=== PATIENT | male | born 1950 | race Caucasian/White ===

== ENCOUNTER 2016-04-06 12:56 | Inpatient (IN) | payer OTHER ==
[~2016-04-06] VITALS: Ht 170.2 cm; Wt 77.1 kg
[2016-04-06 14:18] LABS: Basophils # (auto) 0 uL; DEFINITIVE VIEW TRANSMISSION; Eosinophils # (auto) 0 uL; Hematocrit 18.4 % (41.0-53.0); Lymphocytes % (auto) 11.8 % (10.0-50.0); Mean Corpuscular Hemoglobin 27.4 pg (28.0-32.0); Mean Corpuscular Hgb Conc. 32.1 g/dL (32.0-36.0); Mean Corpuscular Volume 85.3 fL (80.0-100.0); Monocytes # (auto) 1.3 uL; Monocytes % (auto) 7.6 % (0.0-12.0); Neutrophils # (auto) 13.9 uL; Neutrophils % (auto) 80.6 % (37.0-80.0); Platelet Count (auto) 326 10^3/uL (140-450); White Blood Cell 17.2 10^3/uL (4.4-10.8)
[2016-04-06 14:31] LABS: Hemoglobin 5.9 g/dL (13.5-17.5); Red Cell Distribution Width 22.5 % (11.6-16.0)
[2016-04-06 14:41] LABS: Partial Thromboplastin Time 22.3 sec (22.64-33.71); Prothrombin Time 12.3 sec (9.37-12.3)
[2016-04-06 14:44] LABS: Albumin 2.2 g/dL (3.4-5.0); BUN/Creatinine Ratio 51.7; Bilirubin, Total 0.5 mg/dL (0.2-1.0); Calcium 7.7 mg/dL (8.5-10.1); Magnesium 2.3 mg/dL (1.6-2.6); Potassium 5.2 mmol/L (3.5-5.1); Total Protein 4.8 g/dL (6.4-8.2)
[2016-04-06 14:51] LABS: INR 1.19 (0.9-1.15)
[2016-04-06] MEDS ORDERED: PANTOPRAZOLE SODIUM 40 MG/10 ML VIAL IV ONE (15:15)
[2016-04-06 15:43] LABS: Platelet Estimate Adequate
[2016-04-06 15:45] LABS: Anisocytosis Slight; Ovalocytes FEW
[2016-04-06 17:54] VITALS: BP 146/98
[2016-04-06 20:30] VITALS: BP 119/61
[2016-04-06 21:00] VITALS: BP 115/53
[2016-04-06] MEDS ORDERED: InsuLIN REG 1unit/0.01ml Soln (100units/ml) IV ONE (21:30)
[2016-04-06] MEDS ORDERED: PIPERACILLIN-TAZOB 3.375GM 100 ML IV ONE (21:30)
[2016-04-06] MEDS ORDERED: SODIUM CHLORIDE 0.9% 1,000 ML IV ONE ×2 (21:30)
[2016-04-06] MEDS ORDERED: NITROGLYCERIN 0.4 MG SL TAB SL PRN (21:30)
[2016-04-06] MEDS ORDERED: MORPHINE SULF INJ 2 MG/ML SYRINGE 1ML IV PRN (21:30)
[2016-04-06] MEDS ORDERED: DEXTROSE (50%) 50ML SYRG IV PRN (21:30)
[2016-04-06] MEDS ORDERED: VANCOMYCIN 1GM/250ML D5W 250 ML IV ONE (21:30)
[2016-04-06] MEDS ORDERED: LACTULOSE 20Gm/30ML SOLN PO PRN (21:30)
[2016-04-06] MEDS ORDERED: VANCOMYCIN PER PHARMACY 0 MG IV SCH (21:30)
[2016-04-06] MEDS ORDERED: ONDANSETRON HCL 4 MG/2 ML VIAL IV PRN (21:30)
[2016-04-06] MEDS: ACCU-CHEK COMFORT CURVE STRIP VI SCH (22:00)
[2016-04-06] MEDS: InsuLIN REG 1unit/0.01ml Soln (100units/ml) SC SCH (22:00)
[2016-04-06 22:35] LABS: Lactic Acid 8.4 mmol/L (0.4-2.0)
[2016-04-06 22:39] LABS: REFLEX LACTIC ACID YES OR NO YES
[2016-04-06 23:00] VITALS: BP 112/41
[2016-04-07] VITALS (9 sets, daily range): BP systolic 123–164; BP diastolic 66–84
[2016-04-07] MEDS: ACCU-CHEK COMFORT CURVE STRIP VI SCH ×5 (02:00→18:00)
[2016-04-07] MEDS: PIPERACILLIN-TAZOB 3.375GM 100 ML IV SCH ×4 (04:00→18:00)
[2016-04-07 04:15] LABS: DEFINITIVE VIEW TRANSMISSION; Hematocrit 25.6 % (41.0-53.0); Hemoglobin 8.4 g/dL (13.5-17.5); Mean Corpuscular Hemoglobin 28.3 pg (28.0-32.0); Mean Corpuscular Hgb Conc. 32.7 g/dL (32.0-36.0); Mean Corpuscular Volume 86.3 fL (80.0-100.0); Mean Platelet Volume 10.1 fL (7.4-10.4); Platelet Count (auto) 242 10^3/uL (140-450); Red Cell Distribution Width 17.6 % (11.6-16.0); White Blood Cell 18.2 10^3/uL (4.4-10.8)
[2016-04-07 04:39] LABS: Lactic Acid 4.9 mmol/L (0.4-2.0)
[2016-04-07 04:41] LABS: BUN/Creatinine Ratio 61.8; Bilirubin, Total 0.7 mg/dL (0.2-1.0); Calcium 6.4 mg/dL (8.5-10.1); Potassium 3.6 mmol/L (3.5-5.1); Total Protein 3.8 g/dL (6.4-8.2)
[2016-04-07 04:42] LABS: REFLEX LACTIC ACID YES OR NO NO
[2016-04-07 04:47] LABS: Metamyelocytes % 0; Myelocytes % 0; Promyelocytes % 0; Reactive Lymphocytes 0
[2016-04-07 05:52] LABS: Ovalocytes FEW; Platelet Estimate Adequate
[2016-04-07 05:53] LABS: Anisocytosis Slight; Polychromasia Slight
[2016-04-07 05:54] LABS: Burr Cells FEW
[2016-04-07] MEDS: InsuLIN REG 1unit/0.01ml Soln (100units/ml) SC SCH ×5 (06:22→18:00)
[2016-04-07] MEDS ORDERED: PANTOPRAZOLE SODIUM 40 MG/10 ML VIAL IV SCH (10:00)
[2016-04-07] MEDS ORDERED: FAMOTIDINE (10MG/ML) 2ML VL IV SCH (10:00)
[2016-04-07] MEDS ORDERED: VANCOMYCIN 1,250 MG in D5W 5% 250 ML IV SCH ×2 (10:00→11:00)
[2016-04-07 10:57] LABS: Urine Bilirubin Negative (Negative); Urine Blood Negative /uL (Negative); Urine Color Yellow (Yellow); Urine Ketone TRACE (Negative); Urine Nitrite Negative (Negative); Urine RBC 2 /hpf (0 - 3); Urine Urobilinogen Normal (Negative); Urine pH 5.5 (5.0-8.0)
[2016-04-07 10:59] LABS: Urine Glucose 4+ mg/dL (Normal)
[2016-04-07] MEDS ORDERED: ACETAMINOPHEN 325 MG TAB PO PRN (11:00)
[2016-04-07 11:23] LABS: Hemoglobin 10.4 g/dL (13.5-17.5)
[2016-04-07] MEDS ORDERED: METF-316 PO (11:50)
[2016-04-07] MEDS ORDERED: PRO20T PO (11:50)
[2016-04-07] MEDS ORDERED: TRIA0.02 TOP (11:50)
== END 2016-04-07 18:40 | disposition short-term general hospital (02) | DRG 682 ==
LOC: EDBD 12:56 → ER 12:59 → TELE 13:00 → TELE-CENTR 04-07 13:18
PROVIDERS: ADMIT Family Medicine; ATTEND Internal Medicine Geriatric Medicine
PROC: 30233N1 Transfusion of Nonautologous Red Blood Cells into Peripheral Vein, Percutaneous Approach (ICD-10-PCS; principal; 2016-04-06)
DX: N19 Unspecified kidney failure (principal); E11.00 Type 2 diabetes mellitus with hyperosmolarity without nonketotic hyperglycemic-hyperosmolar coma (NKHHC); I10 Essential (primary) hypertension; E11.65 Type 2 diabetes mellitus with hyperglycemia; D64.9 Anemia, unspecified; E86.0 Dehydration; E87.5 Hyperkalemia; Z98.890 Other specified postprocedural states; Z82.49 Family history of ischemic heart disease and other diseases of the circulatory system; Z79.4 Long term (current) use of insulin
CPT/HCPCS: 36415; 70450; 71010; 80053; 81001; 82010; 82962; 83036; 83605; 83735; 84484; 85007; 85014; 85018; 85025; 85027; 85045; 85049; 85610; 85730; 86850; 86900; 86901; 86920; 87040; 87086; 93005; 96365; 96375; C9113; J1815; J2543; J3490; J7060

== ENCOUNTER 2016-07-08 15:28 | Emergency (ER) | payer OTHER ==
[~2016-07-08] VITALS: Ht 170.2 cm; Wt 71.2 kg
[~2016-07-08 15:28] MED LIST: METF-316 PO; PRO20T PO; TRIA0.02 TOP
[2016-07-08] MEDS ORDERED: HYDROcodone-ACET 10/325MG TAB PO ONE (18:45)
[2016-07-08 19:00] VITALS: BP 160/65
[2016-07-08] MEDS ORDERED: traMADol HCL 50 MG TAB PO ONE (19:00)
== END 2016-07-08 19:05 | disposition home or self-care (01) ==
LOC: EDUNIT# 15:28 → ER 15:28
CPT/HCPCS: 23650; 70486; 73030

== ENCOUNTER 2017-04-09 11:38 | Inpatient (IN) | payer OTHER ==
[~2017-04-09] VITALS: Ht 170.2 cm; Wt 165.0 kg
[~2017-04-09 11:38] MED LIST changes: +CLOP75TA41 PO; +COLC1CAP PO; +GLIP-116 PO; -METF-316 PO; +METF-372 PO
[2017-04-09] MEDS ORDERED: SODIUM CHLORIDE 0.9% 1,000 ML IV ONE (12:43)
[2017-04-09 12:47] LABS: Basophils % (auto) 0.3 % (0.0-2.0); Hemoglobin 7.5 g/dL (13.5-17.5); Monocytes # (auto) 0.2 uL
[2017-04-09 12:49] LABS: Basophils # (auto) 0.1 uL; Eosinophils # (auto) 0 uL; Lymphocytes # (auto) 1.2 uL; Lymphocytes % (auto) 6.5 % (10.0-50.0); Mean Corpuscular Hemoglobin 19.1 pg (28.0-32.0); Mean Corpuscular Hgb Conc. 27.8 g/dL (32.0-36.0); Mean Corpuscular Volume 68.9 fL (80.0-100.0); Monocytes % (auto) 0.9 % (0.0-12.0); Neutrophils # (auto) 16.6 uL; Neutrophils % (auto) 92.3 % (37.0-80.0); Nucleated Red Blood Cells % 0.2 %; Platelet Count (auto) 261 10^3/uL (140-450); Red Blood Cells 3.92 10^6/uL (4.5-5.90)
[2017-04-09 13:03] LABS: Albumin 2.5 g/dL (3.4-5.0); Anion Gap 22 (5-15); Blood Urea Nitrogen 77 mg/dL (7-18); Calcium 8.9 mg/dL (8.5-10.1); Carbon Dioxide 12 mmol/L (21-32); Chloride 104 mmol/L (98-107); Glucose 179 mg/dL (74-106); Magnesium 2.7 mg/dL (1.6-2.6); Sodium 138 mmol/L (136-145)
[2017-04-09 13:05] LABS: Alanine Aminotransferase 41 U/L (16-61); Aspartate Aminotransferase 45 U/L (15-37); BUN/Creatinine Ratio 29.8; GFR African American 32 mL/min; GFR Non-African American 27 mL/min
[2017-04-09 13:10] LABS: Alkaline Phosphatase 259 U/L (45-117); Bilirubin, Total 2.6 mg/dL (0.2-1.0); Total Protein 6.6 g/dL (6.4-8.2)
[2017-04-09 16:58] LABS: Urine Bacteria FEW /hpf (None Seen); Urine Blood Negative /uL (Negative); Urine Hyaline Cast MANY /lpf (0 - 2); Urine WBC 1 /hpf (0 - 3)
[2017-04-09] MEDS ORDERED: DEXTROSE (50%) 50ML SYRG IV PRN (21:30)
[2017-04-09] MEDS ORDERED: IBUPROFEN 600 MG TAB PO PRN (21:30)
[2017-04-09] MEDS ORDERED: AZITHROMYCIN 500MG/ 250ML 250 ML IV ONE (21:30)
[2017-04-09] MEDS ORDERED: ONDANSETRON HCL 4 MG/2 ML VIAL IV PRN (21:30)
[2017-04-09] MEDS: ACCU-CHEK COMFORT CURVE STRIP VI SCH (21:35)
[2017-04-09] MEDS: InsuLIN REG 1unit/0.01ml Soln (100units/ml) SC SCH (21:36)
[2017-04-09 22:21] LABS: Lactic Acid w/Reflex 5.6 mmol/L (0.4-2.0)
[2017-04-09] MEDS ORDERED: PANTOPRAZOLE 40 MG/10 ML VIAL IV ONE (22:30)
[2017-04-09] MEDS ORDERED: SODIUM CHLORIDE 0.9% 2,250 ML IV ONE (23:30)
[2017-04-10] VITALS (10 sets, daily range): BP systolic 106–128; BP diastolic 54–76
[2017-04-10 00:57] LABS: Hematocrit 22.5 % (41.0-53.0)
[2017-04-10 01:00] LABS: Hemoglobin 6.6 g/dL (13.5-17.5)
[2017-04-10] MEDS: PIPERACILLIN-TAZOB 2.25GM 50 ML IV SCH ×2 (05:58→11:23)
[2017-04-10] MEDS ORDERED: PIPERACILLIN-TAZOB 3.375GM 50 ML IV SCH (06:00)
[2017-04-10] MEDS: ALBUTEROL SULF 2.5 MG/0.5ML(0.5%) NEB SOLN NEB SCH ×3 (06:20→11:27)
[2017-04-10] MEDS: ACCU-CHEK COMFORT CURVE STRIP VI SCH ×2 (06:29→11:23)
[2017-04-10] MEDS: InsuLIN REG 1unit/0.01ml Soln (100units/ml) SC SCH ×2 (07:00→11:23)
[2017-04-10] MEDS ORDERED: PANTOPRAZOLE 40 MG/10 ML VIAL IV SCH (10:00)
[2017-04-10] MEDS ORDERED: AZITHROMYCIN 500MG/ 250ML 250 ML IV SCH (10:00)
[2017-04-10] MEDS ORDERED: LINEZOLID 600MG/300ML 300 ML IV ONE (12:00)
[2017-04-10 12:24] LABS: Hematocrit 29.5 % (41.0-53.0); Hemoglobin 9.1 g/dL (13.5-17.5); Mean Corpuscular Hemoglobin 21.9 pg (28.0-32.0); Mean Corpuscular Hgb Conc. 30.9 g/dL (32.0-36.0); Mean Corpuscular Volume 71.1 fL (80.0-100.0); Platelet Count (auto) 149 10^3/uL (140-450); Red Blood Cells 4.16 10^6/uL (4.5-5.90); White Blood Cell 14.1 10^3/uL (4.4-10.8)
[2017-04-10 12:27] LABS: Red Cell Distribution Width 27.4 % (11.8-14.3)
[2017-04-10 12:29] LABS: Eosinophils % (manual) 0 (0-7)
[2017-04-10 12:30] LABS: Basophils % (manual) 0 (0.0-2.0); Blast Cells 0; Metamyelocytes % 0; Myelocytes % 0; Promyelocytes % 0; Reactive Lymphocytes 0
[2017-04-10 12:47] LABS: Albumin 1.9 g/dL (3.4-5.0); Bilirubin, Total 2.2 mg/dL (0.2-1.0); Calcium 7.5 mg/dL (8.5-10.1); Potassium 3.7 mmol/L (3.5-5.1); Total Protein 5.8 g/dL (6.4-8.2)
[2017-04-10 13:56] LABS: Band Neutrophils % (manual) 6; Lymphocytes % (manual) 3 (10.0-50.0); Monocytes % (manual) 2 (0-12)
[2017-04-10] MEDS ORDERED: LINEZOLID 600MG/300ML 300 ML IV SCH (22:00)
== END 2017-04-10 14:30 | disposition short-term general hospital (02) | DRG 871 ==
LOC: ER 11:38 → TELE 11:39 → TELE-WESTW 04-10 07:49
PROVIDERS: ADMIT Nurse Practitioner Family; ATTEND Family Medicine
PROC: 30233N1 Transfusion of Nonautologous Red Blood Cells into Peripheral Vein, Percutaneous Approach (ICD-10-PCS; principal; 2017-04-10)
DX: A41.9 Sepsis, unspecified organism (principal); J18.9 Pneumonia, unspecified organism; E43 Unspecified severe protein-calorie malnutrition; N17.9 Acute kidney failure, unspecified; N18.4 Chronic kidney disease, stage 4 (severe); E11.22 Type 2 diabetes mellitus with diabetic chronic kidney disease; K74.60 Unspecified cirrhosis of liver; Z68.43 Body mass index [BMI] 50.0-59.9, adult; K92.2 Gastrointestinal hemorrhage, unspecified; G45.9 Transient cerebral ischemic attack, unspecified; D50.9 Iron deficiency anemia, unspecified; E11.65 Type 2 diabetes mellitus with hyperglycemia; E78.5 Hyperlipidemia, unspecified; I12.9 Hypertensive chronic kidney disease with stage 1 through stage 4 chronic kidney disease, or unspecified chronic kidney disease; I25.10 Atherosclerotic heart disease of native coronary artery without angina pectoris; M10.9 Gout, unspecified; D50.0 Iron deficiency anemia secondary to blood loss (chronic); Z82.49 Family history of ischemic heart disease and other diseases of the circulatory system; Z83.3 Family history of diabetes mellitus; Z95.1 Presence of aortocoronary bypass graft
CPT/HCPCS: 36415; 70450; 71045; 80053; 81001; 82270; 82962; 83605; 83735; 84443; 84484; 85007; 85014; 85018; 85025; 85027; 86850; 86900; 86901; 86920; 87040; 87077; 87186; 87400; 93005; 94640; 94761; C9113; J1815; J2543

== ENCOUNTER 2019-02-01 14:09 | Emergency (ER) | payer OTHER ==
[~2019-02-01] VITALS: Ht 170.2 cm; Wt 78.9 kg
[~2019-02-01 14:09] MED LIST changes: -GLIP-116 PO; +GLIP10TA9 PO
[2019-02-01 16:00] LABS: Alanine Aminotransferase 53 U/L (16-61); Albumin 3.1 g/dL (3.4-5.0); Anion Gap 8 (5-15); Aspartate Aminotransferase 55 U/L (15-37); BUN/Creatinine Ratio 24.2; Blood Urea Nitrogen 23 mg/dL (7-18); Calcium 8.5 mg/dL (8.5-10.1); Carbon Dioxide 22 mmol/L (21-32); Chloride 109 mmol/L (98-107); GFR African American 101 mL/min; GFR Non-African American 84 mL/min; Glucose 119 mg/dL (74-106); Potassium 4.6 mmol/L (3.5-5.1); Sodium 139 mmol/L (136-145)
[2019-02-01 16:04] LABS: Alkaline Phosphatase 297 U/L (45-117); Bilirubin, Total 0.9 mg/dL (0.2-1.0); Total Protein 7.5 g/dL (6.4-8.2)
[2019-02-01 16:14] LABS: Basophils # (auto) 0 uL; Basophils % (auto) 0.7 % (0.0-2.0); Eosinophils # (auto) 0.1 uL; Hematocrit 32.6 % (41.0-53.0); Lymphocytes # (auto) 1.4 uL; Mean Corpuscular Hgb Conc. 30.2 g/dL (32.0-36.0); Monocytes # (auto) 0.8 uL
[2019-02-01 16:16] LABS: Eosinophils % (auto) 1.7 % (0.0-7.0); Hemoglobin 9.9 g/dL (13.5-17.5); Lymphocytes % (auto) 20.2 % (10.0-50.0); Mean Corpuscular Hemoglobin 21.5 pg (28.0-32.0); Mean Corpuscular Volume 71.1 fL (80.0-100.0); Monocytes % (auto) 11.5 % (0.0-12.0); Neutrophils # (auto) 4.4 uL; Neutrophils % (auto) 65.9 % (37.0-80.0); Nucleated Red Blood Cells % 0.2 %; Platelet Count (auto) 217 10^3/uL (140-450); Red Blood Cells 4.59 10^6/uL (4.5-5.90); Red Cell Distribution Width 19.4 % (11.8-14.3); White Blood Cell 6.8 10^3/uL (4.4-10.8)
[2019-02-01] MEDS ORDERED: traMADol HCL 50 MG TAB PO ONE (21:00)
[2019-02-01] MEDS ORDERED: MECLIZINE HCL 25 MG TAB PO ONE (21:00)
[2019-02-01] MEDS ORDERED: MECLIZINE HCL 25 MG TAB ONE ×2 (21:24)
[2019-02-01] MEDS ORDERED: traMADol HCL 50 MG TAB ONE ×4 (21:24)
[2019-02-01 22:03] VITALS: BP 160/76
[2019-02-04] MEDS ORDERED: MIDAZOLAM HCL 1MG/1ML-2 ML VIAL ONE ×2 (13:45→14:02)
[2019-02-04] MEDS ORDERED: MEPERIDINE HCL (25 MG/ML) 1ML VIAL ONE ×2 (13:45→14:30)
[2019-02-04] MEDS ORDERED: fentaNYL CITRATE 100 MCG/2 ML VL ONE (13:45)
[2019-02-04] MEDS ORDERED: KETAMINE HCL 1 ML ONE (13:47)
[2019-02-04] MEDS ORDERED: DexAMETHasone SOD PHOS 10MG/1ML VIAL INJ ONE (13:47)
== END 2019-02-01 22:09 | disposition home or self-care (01) ==
LOC: ER 14:11
DX: S22.41XA Multiple fractures of ribs, right side, initial encounter for closed fracture (principal); K74.60 Unspecified cirrhosis of liver; I10 Essential (primary) hypertension; I25.10 Atherosclerotic heart disease of native coronary artery without angina pectoris; E11.9 Type 2 diabetes mellitus without complications; Z95.1 Presence of aortocoronary bypass graft; Z88.5 Allergy status to narcotic agent; Z79.899 Other long term (current) drug therapy; Z79.84 Long term (current) use of oral hypoglycemic drugs; Z79.01 Long term (current) use of anticoagulants; W22.8XXA Striking against or struck by other objects, initial encounter; Y93.89 Activity, other specified; Y92.89 Other specified places as the place of occurrence of the external cause; Y99.8 Other external cause status
CPT/HCPCS: 36415; 70450; 71250; 73030; 74176; 80053; 84484; 85025; 93005; 99284; J8597

== ENCOUNTER 2021-05-27 09:58 | Emergency (ER) | payer OTHER ==
[~2021-05-27] VITALS: Ht 182.9 cm; Wt 81.6 kg
[~2021-05-27 09:58] MED LIST changes: -CLOP75TA41 PO; +CLOP75TA70 PO
[2021-05-27] MEDS ORDERED: SODIUM CHLORIDE 0.9% 1,000 ML IV ONE (10:30)
[2021-05-27 11:15] LABS: Basophils # (auto) 0 10 ^3/uL (0-0.2); Basophils % (auto) 0.5 % (0.0-2.0); Eosinophils # (auto) 0.1 10 ^3/uL (0-0.8); Eosinophils % (auto) 2.8 % (0.0-7.0); Hematocrit 38.1 % (41.0-53.0); Lymphocytes # (auto) 0.3 10 ^3/uL (0.4-5.4); Mean Corpuscular Hemoglobin 31.4 pg (28.0-32.0); Mean Corpuscular Hgb Conc. 34.2 g/dL (32.0-36.0); Mean Corpuscular Volume 91.8 fL (80.0-100.0); Monocytes # (auto) 0.6 10 ^3/uL (0-1.3); Monocytes % (auto) 17.9 % (0.0-12.0); Neutrophils # (auto) 2.5 10 ^3/uL (1.6-8.6); Neutrophils % (auto) 69.8 % (37.0-80.0); Nucleated Red Blood Cells % 0.2 %; Red Blood Cells 4.15 10^6/uL (4.5-5.90); Red Cell Distribution Width 16.8 % (11.8-14.3); White Blood Cell 3.6 10^3/uL (4.4-10.8)
[2021-05-27 11:52] LABS: Albumin 2.6 g/dL (3.4-5.0); Calcium 8.7 mg/dL (8.5-10.1); Potassium 4.6 mmol/L (3.5-5.1)
[2021-05-27 11:58] LABS: BUN/Creatinine Ratio 29.1; Bilirubin, Total 1.3 mg/dL (0.2-1.0); Total Protein 6.5 g/dL (6.4-8.2)
[2021-05-27 12:34] LABS: Urine WBC None Seen /hpf (0 - 3)
[2021-05-27 12:53] LABS: Urine Bacteria NONE SEEN /hpf (None Seen); Urine Blood Negative /uL (Negative); Urine Specific Gravity 1.018 (1.001-1.035)
[2021-05-27 13:17] VITALS: BP 148/83
== END 2021-05-27 15:32 | disposition home or self-care (01) ==
LOC: EDBD 09:58 → EDUNIT# 09:58 → ER 09:58
DX: F03.90 Unspecified dementia, unspecified severity, without behavioral disturbance, psychotic disturbance, mood disturbance, and anxiety (principal); I10 Essential (primary) hypertension; I25.10 Atherosclerotic heart disease of native coronary artery without angina pectoris; E11.9 Type 2 diabetes mellitus without complications; M10.9 Gout, unspecified; Z86.2 Personal history of diseases of the blood and blood-forming organs and certain disorders involving the immune mechanism; Z95.1 Presence of aortocoronary bypass graft; Z20.822 Contact with and (suspected) exposure to COVID-19
CPT/HCPCS: 36415; 70450; 71045; 80053; 81001; 83880; 84484; 85025; 87426; 93005; 96360; 96361; 99285; J7030